=== PATIENT | male | born 1970 | race Caucasian/White ===

== ENCOUNTER 2023-01-19 09:28 | Emergency (ER) | payer OTHER ==
[~2023-01-19] VITALS: Ht 165.1 cm; Wt 92.0 kg
[~2023-01-19 09:28] MED LIST: CEPH500C2 MT
[2023-01-19 09:33] VITALS: BP 151/94
== END 2023-01-19 11:16 | disposition home or self-care (01) ==
LOC: ER 09:28
DX: S61.412D Laceration without foreign body of left hand, subsequent encounter (principal); X58.XXXD Exposure to other specified factors, subsequent encounter
CPT/HCPCS: 99281; Z7610